=== PATIENT | female | born 2005 | race Asian ===

== ENCOUNTER 2024-08-05 22:09 | Inpatient (IN) | payer OTHER, SELFPAY ==
[2024-08-05 19:03] VITALS: BP 97/52
[2024-08-05 19:50] LABS: Hematocrit 38.6 % (37.0-47.0); Hemoglobin 13.2 g/dL (12.0-16.0); Mean Corp Hgb Conc. 34.2 g/dL (33.0-37.0); Mean Corpuscular Hgb 28.8 pg (27.0-31.0); Mean Corpuscular Volume 84.3 fL (81.0-99.0); Mean Platelet Volume 10.8 fL (7.4-10.4); Platelet Count 162 10^3/uL (130-400); Red Blood Cell Count 4.58 10^6/uL (4.20-5.40); Red Cell Dist. Width 12.3 % (11.5-14.5); White Blood Cell Count 12.7 10^3/uL (4.8-10.8)
[2024-08-05 19:53] LABS: COVID-19 Antigen Negative (Negative)
[2024-08-05 19:57] LABS: HCG, Serum Qualitative Screen Negative
--- NOTE | 2024-08-05 20:05 | ED.GENMED ---
History of Present Illness
General
Chief Complaint: Cold/Flu/URI Symptoms
Source: patient
Exam Limitations: none
Time Seen by Provider: 08/05/24 19:25
History of Present Illness
History of Present Illness:
This is a 19 year old female that comes in with c/o chest pain and SOB. States that she is having trouble breathing and she has sharp chest pain. States that this started on Monday and is getting worse. States that she went to see the PCP today
and she has strep throat. States that she was started on Antibiotic and she has taken one dose. States that she has a fever of 102.0 with chills yesterday. State that she is also Nauseated and occasionally dizzy. Denies any abd pain, vomiting,
diarrhea, headache, urinary burning.
Past History
Past History
ED Past Medical History: Other (Migraines); Negative Asthma, HTN, Hypercholesterolemia or NIDDM
ED Past Surgical History: None
Social History
Tobacco: Smoker
Alcohol: Occasional
Personal: Single
Living: with family
Review of Systems
Review of Systems
All Other Systems: ROS reviewed and negative except as documented in HPI and ROS
Constitutional: Reports fever (Monday) and chills
EENT: Reports sore throat
Respiratory: Reports trouble breathing; Denies cough
Cardiac: Reports chest pain
ABD/GI: Reports nausea; Denies abdominal pain, vomiting or diarrhea
: Reports no symptoms; Denies dysuria, frequency or urgency
Musculoskeletal: Reports no symptoms
Skin: Reports no symptoms
Neurological: Reports dizzy (occasional); Denies headache
Psychiatric: Reports no symptoms
Phy Exam
General Physical Exam
General Presentation: no apparent distress
General age: appears stated age
General Skin: warm and dry
General Habitus: normal
General Mental: alert
General Hydration: appears well hydrated
ENT Exam
ENT Exam: TM's normal, neck supple and other (Pharynx red)
Eye Exam
Eye Exam: EOMI
Cardiovascular Exam
Cardiovascular Exam: no edema, no murmur, normal peripheral pulses and tachycardia
Pulmonary Exam
Pulmonary Exam: lungs clear, no respiratory distress, no rales, chest non tender, no crackles, no rhonchi, no wheezing and no cough
Gastrointestinal Exam
Gastrointestinal Exam: normal bowel sounds, non tender, soft, no organomegaly, no pulsatile mass and non distended
Musculoskeletal Exam
Musculoskeletal Exam: full ROM and no edema
Skin Exam
Skin Exam: normal color, warm/dry, no rash and no petechia
Psychiatric Exam
Psychiatric Exam: normal mood/affect
Course
Orders/Labs/Results
Orders:
Orders
08/05/24 19:05
Electrocardiogram (*1) Urgent
Reason for Study: Tachycardia
EKG- Treatment ONCE
Test Result ONCE
08/05/24 19:09
COVID-19 Antigen Urgent
Source: Nasal Swab
Influenza A+B Rapid Molecular Urgent
LEON Source: Nasal Swab
Specimen Description:
08/05/24 19:11
CMP [Comprehensive Metabolic Panel] Urgent
Complete Blood Count/With Diff Urgent
HCG, Serum Qualitative Screen Urgent
08/05/24 20:04
0.9% Sodium Chloride 1000 ml [Nss] 1,000 ml IV BOLUS
Dexamethasone Sod Phosphate [Decadron] 10 mg IV NOW STA
08/05/24 20:05
Troponin I Urgent
08/05/24 20:07
Ondansetron Injectable [Zofran] 4 mg IV NOW STA
08/05/24 20:12
Pantoprazole [Protonix IV] 40 mg IV NOW STA
08/05/24 20:13
D-Dimer Urgent
08/05/24 20:37
Piperacillin/Tazo 3.375 Gram [Zosyn] 3.375 gram in 50 ml IV NOW
Abnormal Lab Results
08/05/24
19:11
WBC 12.7 H 10^3/uL
(4.8-10.8)
MPV 10.8 H fL
(7.4-10.4)
Sodium 131 L mmol/L
(135-145)
Potassium 3.3 L mmol/L
(3.5-5.1)
Chloride 95 L mmol/L
(98-107)
BUN 18 H mg/dl
(7-17)
Creatinine 1.3 H mg/dL
(0.6-1.0)
Glucose 121 H mg/dl
(70-99)
Total Protein 6.1 L g/dl
(6.3-8.2)
Albumin 3.4 L g/dl
(3.5-5.0)
08/05/24 19:11
08/05/24 19:11
Leukocytosis, HCG negative, Hypokalemia, Slight Dehydration. Hyperglycemia. Total protein slightly low. Albumin slightly low.
Vital Signs
Initial and Last Documented VS:
Initial Vital Signs
Temp Pulse Resp BP Pulse Ox
98.4 F 150 18 97/52 100
08/05/24 19:03 08/05/24 19:03 08/05/24 19:03 08/05/24 19:03 08/05/24 19:03
Last Documented Vital Signs
Temp Pulse Resp BP Pulse Ox
98.4 F 150 18 97/52 100
08/05/24 19:03 08/05/24 19:03 08/05/24 19:03 08/05/24 19:03 08/05/24 19:03
MDM/Problems Addressed
Differential Diagnosis Includes:
PNA, Strep throat Gastritis
MDM/Problems Addressed:
This is a 19 year old female that comes in with c/o chest and SOB. States that this started on Monday and has gotten worse. States that she went to the PCP today and was told that she has Strep throat. States that they told her this doesn't have
anything to do with strep throat.
Will check labs, chest x-ray, give IV fluids, Decadron and Toradol.
Back to see patient. Explained to patient and parents that she would be admitted. Patient has a large left sided Pneumonia and is very Tachycardic. Will start on IV antibiotics. Hospitalist notified.
Chronic conditions affecting care:
NA
Acute Exacerbation and/or Progression of Chronic Illness:
NA
*Radiology
Radiology exam reviewed: radiology read reviewed (Chest done as out patient today-Dense lingular consolidcation and smaller patchy opacities in the right upper lobe, Most compatible with Pneumonia Recommend radiographic follow up to resolution. )
*Pulse Oximetry
Patient hypoxic: no
*EKG
Interpreted by ED Provider?: Yes
Heart Rate: 137
Rate: tachycardiac
Rhythm: sinus
[place]: normal axis
Interval: normal interval
QRS Pattern: normal QRS
Ischemia: no ischemia
*Ammonia Distiller Interpretation
Rate: Ammonia Distiller- N/A
*Critical Care Note
Total Time (30-74mins, 75-104mins- exclusive of procedures): Not Applicable
ED Attending Note
-
Portions of this chart may have been created with voice recognition software.� Occasional wrong word or��sound alike� substitutions may have occurred due to the inherent limitations of voice recognition software.
Discharge Plan
Departure
Patient Disposition: Admit
Date of Disposition: 08/05/24
Time of Disposition: 20:55
Admit to: Med/Surg
Presentation/result/management discussed w/ accepting MD/DO: Hospitalist
Patient with high blood pressure during this ER visit?: No
Condition: Good
Covid-19: Not Applicable
Discharge Problem:
Left upper lobe pneumonia, Tachycardia
Referrals:
Phyllis Avila MD [Family Provider] -
Discharge Date and Time
Print Language: OMANI
[2024-08-05 20:07] LABS: ALT (SGPT) 16 U/L (0-35); AST (SGOT) 26 U/L (14-36); Albumin 3.4 g/dl (3.5-5.0); Alkaline Phosphatase 125 U/L (38-126); Blood Urea Nitrogen 18 mg/dl (7-17); Calcium 8.7 mg/dl (8.4-10.2); Carbon Dioxide 22 mmol/L (22-30); Chloride 95 mmol/L (98-107); Glucose 121 mg/dl (70-99); Potassium 3.3 mmol/L (3.5-5.1); Sodium 131 mmol/L (135-145); Total Bilirubin 0.8 mg/dl (0.2-1.3); Total Protein 6.1 g/dl (6.3-8.2); eGFR > 60.00
--- NOTE | 2024-08-05 21:06 | HPS.HSE ---
Family Physician
-
Family Physician: Phyllis Avila
Chief Complaint
-
cough
fever
History of Present Illness
19 year old female with PMH for depression, anxiety presented to us c/o chest pain and SOB since Monday. she was noted to have cough with dark brown sputum. she complained of JULIO and dizzy. she was having fever of 102at home. she was taking Tylenol
and ibuprofen at home. complained of nausea. denied vomiting or diarrhea. denied dysuria or hematuria. States that she went to see the PCP today and she has strep throat. States that she was started on Antibiotic and she has taken one dose.
Patient received dexamethasone, normal saline, Zofran, Protonix. Zosyn in ER
Admitting for further management for pneumonia.
Medical History
Past Medical History
Past Medical History: Reports Other
Additional Past Medical History:
depression
anxiety
Past Surgical History: Reports None
Social History
Tobacco: Vaping
Alcohol: Occasional
Drug: Other (weeds months ago)
Family History
Family History: Not pertinent
Allergies / Home Medications
Allergies reflects when Allergies were last updated in [employer].
Home Medications with original date entered in [employer]
Allergy/Medication List:
Allergies
Allergy/AdvReac Type Severity Reaction Status Date / Time
No Known Allergies Allergy Verified 08/05/24 18:56
Review of Systems
-
Constitutional: Reports No Symptoms, Fever, Fatigue and Chills
EENT: Reports Sore Throat
Respiratory: Reports Cough and Trouble Breathing
Cardiac: Reports No Symptoms
Abdomen/GI: Reports Nausea
: Reports No Symptoms
Musculoskeletal: Reports No Symptoms
Skin: Reports No Symptoms
Neurological: Reports No Symptoms
Endocrine: Reports No Symptoms
Hematologic/Lymphatic: Reports No Symptoms
Psych: Reports No Symptoms
Physical Exam
Vital Signs
Vital Signs
Temp Pulse Resp BP Pulse Ox
98.4 F 150 18 97/52 100
08/05/24 19:03 08/05/24 19:03 08/05/24 19:03 08/05/24 19:03 08/05/24 19:03
Physical Exam
General: Well Developed, Well Nourished and No Apparent Distress
HEENT: NormoCephalic, Moist mucous membranes and Atraumatic
Respiratory: Clear
Cardiac: S1/S2 and Regular Rhythm; No Murmur or Rub
GI: Soft, Non Tender, Non Distended and Normal Bowel Sounds; No Organomegaly
Rectal: Deferred by Provider
Musculoskeletal: No Clubbing, No Cyanosis and No Edema
Skin: No Rash
Neuro: AO x 3 and Nonfocal/grossly intact
Psych: Calm
Laboratory Results
-
08/05/24 19:11
08/05/24 19:11
Laboratory Results
Total Bilirubin 0.8 mg/dl (0.2-1.3) 08/05/24 19:11
AST 26 U/L (14-36) 08/05/24 19:11
ALT 16 U/L (0-35) 08/05/24 19:11
Alkaline Phosphatase 125 U/L (38-126) 08/05/24 19:11
Data Reviewed
-
Diagnostic Radiology: Report Reviewed by me
Lab Data: Labs Reviewed by me
Impression/Plan
-
# fever, cough likely strep Left-sided pneumonia
# Strep throat
#sepsis as evident by hypotension, wbc, and tachycardia
-WBC 12.7
-COVID influenza AMB-negative
-Chest x-ray with impression of Dense lingular consolidation and smaller patchy opacities in the right upper lobe, most compatible with pneumonia.
-Tylenol prn for fever
-Mucinex prn for cough
-iv ceftriaxone and zithro
# Tachycardia likely from dehydration
-EKG with sinus tachycardia
-fluids continued
# Hyponatremia likely hypovolemic
# Hypokalemia
# Acute kidney injury
-oral kcl
-BMP in am
#depression/anxiety
desinofexine and Seroquel continued
#DVT prophylaxis
-scd
#CODE status
-full code
[2024-08-05 21:09] LABS: % Basophils 0.6 % (0-2); % Eosinophils 0.8 % (0-6); % Immature Granulocytes 20.4 % (0-0.5); % Lymphocytes 2.9 % (20.5-51.1); % Monocytes 6.8 % (1.7-9.3); % Neutrophils 68.5 % (42.2-75.2); Absolute Basophils 0.1 10^3/uL (0-0.2); Absolute Eosinophils 0.1 10^3/uL (0-0.7); Absolute Immature Granulocytes 2.6 10^3/uL (0-0.05); Absolute Lymphocytes 0.4 10^3/uL (1.2-3.4); Absolute Monocytes 0.9 10^3/uL (0.1-0.6); Absolute Neutrophils 8.7 10^3/uL (1.4-6.5); Nucleated Red Blood Cells % 0 %
[2024-08-05] MEDS: DECADRON 10 MG IV (21:12)
[2024-08-05] MEDS: ZOFRAN 4 MG IV (21:13)
[2024-08-05] MEDS: PROTONIX IV 40 MG IV (21:13)
[2024-08-05] MEDS: ZOSYN 50 IV (21:13)
[2024-08-05] MEDS: NSS 1000 IV ×2 (21:14→23:37)
--- NOTE | 2024-08-05 21:44 | W.PN.UPDATE ---
Update Note
Progress Note Update
This note serves as an addendum to the H&P by carton filler BOGDAN Valerie VILLA
HPI
19F current smoker, vapes daily seen at ER
- for Sob , colored sputum, T 102 at home with chills
- POS chills
- sharp chest pain started on Monday and is getting worse.
- saw e PCP today POS strep throat, started on Amoxicillin s/p one dose BLOOD TESTER FOWL
- PCP started on Antibiotic and she has taken one dose
- Nauseated and occasionally dizzy.
- Denies any abd pain, vomiting, diarrhea, headache, urinary burning.
Reviewed VS:
Vital Signs
Temp Pulse Resp BP Pulse Ox
98.4 F 150 18 97/52 100
08/05/24 19:03 08/05/24 19:03 08/05/24 19:03 08/05/24 19:03 08/05/24 19:03
PE
Gen: not toxic looking
HEENT anicteric
Neck: supple
Lungs: symmetric AE
Cor:RRR ST S1 S2
PROJECT CONSTRUCTION MANAGER: AAO3
MS:no edema
Psych:anxious
Abnormal Lab Results
08/05/24
19:11
WBC 12.7 H
MPV 10.8 H
Abs Immat Gran (auto) 2.6 H
Absolute Neuts (auto) 8.7 H
Absolute Lymphs (auto) 0.4 L
Absolute Monos (auto) 0.9 H
Immature Gran % 20.4 H
Lymphocytes % 2.9 L
Sodium 131 L
Potassium 3.3 L
Chloride 95 L
BUN 18 H
Creatinine 1.3 H
Glucose 121 H
Total Protein 6.1 L
Albumin 3.4 L
CXR: Dense lingular consolidation and smaller patchy opacities in the right upper lobe, most compatible with pneumonia
ASSESSMENT & PLAN
CAP @ RUL PNA suspect strep complicated with sepsis
Associated with pleuritic CP
Strep POS tonsillitis
- s/p 1 L NS
- cont NS @ 120/H
- switch to IV CFTX and Azithromycin
- BCx
- Tylenol PRN for mild pain
- Oxycodone PRN fo moderate pain
- cassation of smoking and vaping suggested
GUY tonya to sepsis and PNA
Mild hypovolemic hyponatremia
- IV NS
- f/u Cr in AM
- avoid NSAIDs
Anxiety/depression
- cont Seroquel 150mmg HS and Desvenlafaxine
DVT Px: LMWH
Full code
IP TLM
[2024-08-05 22:41] LABS: D-Dimer 1.84 ug/mlFEU (0.00-0.50)
[2024-08-05 22:47] VITALS: BP 98/51
[2024-08-05 23:00] LABS: Troponin I < 0.012 ng/ml
[2024-08-05 23:03] VITALS: BP 90/58
[2024-08-05 23:06] VITALS: BMI 20.2
[2024-08-05] MEDS: LOVENOX 40 MG SC (23:37)
[2024-08-05] MEDS: MUCINEX 600 MG PO (23:37)
[2024-08-05] MEDS: STERILE WATER FOR INJECTION 10 ML IV (23:43)
[2024-08-05] MEDS: ROCEPHIN 1000 MG IV (23:43)
[2024-08-05] MEDS: ZITHROMAX INFUSION 250 IV (23:43)
[2024-08-06] VITALS (21 sets, daily range): BP systolic 80–111; BP diastolic 46–77; BMI 21.2
[2024-08-06 06:39] LABS: Hematocrit 32.4 % (37.0-47.0); Hemoglobin 11.2 g/dL (12.0-16.0); Mean Corp Hgb Conc. 34.6 g/dL (33.0-37.0); Mean Corpuscular Hgb 29.3 pg (27.0-31.0); Mean Corpuscular Volume 84.8 fL (81.0-99.0); Mean Platelet Volume 10.7 fL (7.4-10.4); Platelet Count 167 10^3/uL (130-400); Red Blood Cell Count 3.82 10^6/uL (4.20-5.40); Red Cell Dist. Width 12.2 % (11.5-14.5); White Blood Cell Count 21.1 10^3/uL (4.8-10.8)
[2024-08-06 07:10] LABS: Blood Urea Nitrogen 16 mg/dl (7-17); Calcium 8.2 mg/dl (8.4-10.2); Carbon Dioxide 21 mmol/L (22-30); Chloride 105 mmol/L (98-107); Estimated Creatinine Clearance 94 ml/min; Glucose 150 mg/dl (70-99); Potassium 3.9 mmol/L (3.5-5.1); Sodium 135 mmol/L (135-145); eGFR > 60.00
[2024-08-06] MEDS: MUCINEX 600 MG PO ×2 (07:24→20:48)
[2024-08-06] MEDS: TYLENOL 650 MG PO (10:52)
--- NOTE | 2024-08-06 12:29 | W.PN.HOSP.TC ---
Addendum entered and electronically signed by Carmen Blankenship MD 08/06/24 13:55:
I personally performed a history and physical exam of the patient and discussed management with the resident. I reviewed the resident's note and agree with the documented findings and plan of care HPI/CC.
A/P:
# Sepsis POA 2/2 Community-acquired pneumonia
CXR: RUL PNA
Cont IV Ceftriaxone, Azithromycin
Check MRSA Screen
Follow up Blood Cx
Tylenol/Motrin PRN
# Prerenal GUY, resolved
Cr 1.3 -> 0.8
# sinus tachycardia
Can start Lopressor PRN for HR > 120, hold for SBP < 100
# Anxiety/Depression
Continue Home Meds
# Vaping history
Smoking Cessation Counseling
Original Note:
Today's Communication/Plan
-
.
Assessment / Plan
Assessment / Plan
1. Community-acquired pneumonia
- CXR: RUL PNA complicated by sepsis POA
- IV Ceftriaxone, Azithromycin
- MRSA Screen:
- IVF NS @ 120
- Follow up Blood Cx
- Associated with Pleuritic CP
- Tylenol/Motrin PRN
2. GUY
- Cr 1.3 on arrival, 0.8 this morning s/p IVF; likely secondary to dehydration
- Okay for Motrin; Continue to Monitor CMP
3. Tachycardia
- Likely secondary to dehydration
- IVF
- EKG: sinus tach
- Lopressor for HR > 120, hold for SBP < 100
4. Hypokalemia (resolved)
- K 3.9 s/p 40mEQ
5. Anxiety/Depression
- Continue Home Meds
6. Vaping
- Estimates equivalent of 3 cigs per day
- Smoking Cessation Counseling
Anticipated Discharge: 24 - 48 hours
Subjective/Interval History
-
Date of Service: August 06, 2024
Patient seen and examined while resting in her bed in the ED. Briefly, patient is a 22-year-old female with a past medical history of depression, anxiety, vaping who presents with 3 days of pleuritic chest pain, shortness of breath, cough productive
of dark sputum, headache, nausea, fever with Tmax of 102 controlled with Tylenol and Motrin. Additionally patient has pain with swallowing, visited her PCP the day before arrival, diagnosed with strep, started on amoxicillin. ED evaluation
revealed WBC 12.7, chest x-ray consistent with right upper lobe pneumonia. Patient was started on IV ceftriaxone/azithromycin, Tylenol as needed, Mucinex, IV fluids.
This morning, patient states that she feels the same. Continues to have odynophagia, feels feverish, has cough, and pleuritic chest pain.
Objective Data
-
Labs:
Laboratory Results
08/06/24
06:30
WBC 21.1 H
Hgb 11.2 L
Hct 32.4 L
Plt Count 167
Sodium 135
Potassium 3.9
Chloride 105
Carbon Dioxide 21 L
BUN 16
Creatinine 0.8
Glucose 150 H
Calcium 8.2 L
Vital Signs:
Vital Signs
Temp Pulse Resp BP Pulse Ox
99.6 F 129 36 99/77 97
08/06/24 12:15 08/06/24 12:17 08/06/24 12:17 08/06/24 12:00 08/06/24 10:58
Review of Systems
-
History Source: Patient
Constitutional: Reports Fever and Fatigue
EENT: Reports Sore Throat
Respiratory: Reports Cough and Pleurisy
Cardiac: Reports No Symptoms
Abdomen/GI: Reports Nausea; Denies Vomiting or Diarrhea
Genitourinary: Reports No Symptoms
Neuro: Reports Headache; Denies Lightheadedness
Physical Exam
-
General: Well Developed, Well Nourished and No Apparent Distress
HEENT: Normocephalic, Atraumatic, Anicteric and Pharyngeal Erythema
Respiratory: Clear to Auscultation and Non Labored Respirations
Cardiac: Regular Rhythm and Tachycardic
GI: Soft and Nontender
Musculoskeletal: No Clubbing, No Cyanosis and No Edema
Neuro: Awake, Alert and Oriented
Psych: Calm
Data Reviewed
-
Diagnostic Radiology: Report Reviewed by me and Discussed with Patient
Labs: Labs Reviewed by me and Discussed with Patient
[2024-08-06] MEDS: MOTRIN 400 MG PO (14:06)
[2024-08-06] MEDS: NSS 1000 IV ×2 (15:35→23:51)
[2024-08-06] MEDS: NSS IV (17:06)
[2024-08-06] MEDS: LOVENOX 40 MG SC (18:43)
--- NOTE | 2024-08-06 19:27 | W.PN.UPDATE ---
Update Note
Progress Note Update
D Dimer elevated 1.84 CT/PE ordered and result shows no pulmonary embolism.
-There is multifocal pneumonia including:
-Extensive alveolar airspace disease in the lingula
-Patchy acinar airspace disease in the lateral aspect of the right upper lobe
-Hazy ground glass airspace disease in the basilar portion of the left lower lobe
[2024-08-06] MEDS: PRISTIQ 100 MG PO (20:48)
[2024-08-06] MEDS: NON-FORMULARY ITEM 150 MG PO (20:48)
[2024-08-06] MEDS: ROCEPHIN 1000 MG IV (23:52)
[2024-08-06] MEDS: STERILE WATER FOR INJECTION 10 ML IV (23:52)
[2024-08-06] MEDS: ZITHROMAX INFUSION 250 IV (23:56)
--- NOTE | 2024-08-07 00:26 | PTCARENOTE ---
Patient received in bed upon change of shift with dx of PNA. Patient D dimer elevated and sent at start of shift for CT scan which came back negative for PE. Patient denies chest pain or SOB. Vitals stable. AAOX3. No signs of distress noted.
Pleasant and cooperative with care. Oriented to unit. Call stevens within reach.
[2024-08-07] MEDS: LOPRESSOR 5 MG IV ×3 (00:57→22:28)
[2024-08-07] MEDS: COMPAZINE 5 MG IV ×2 (01:16→23:08)
[2024-08-07 03:00] VITALS: BP 97/62
[2024-08-07 07:21] VITALS: BP 127/80
[2024-08-07 08:02] LABS: Hematocrit 33.4 % (37.0-47.0); Hemoglobin 11.3 g/dL (12.0-16.0); Mean Corp Hgb Conc. 33.8 g/dL (33.0-37.0); Mean Corpuscular Hgb 28.5 pg (27.0-31.0); Mean Corpuscular Volume 84.3 fL (81.0-99.0); Mean Platelet Volume 10.9 fL (7.4-10.4); Platelet Count 178 10^3/uL (130-400); Red Blood Cell Count 3.96 10^6/uL (4.20-5.40); Red Cell Dist. Width 12.3 % (11.5-14.5); White Blood Cell Count 21.4 10^3/uL (4.8-10.8)
[2024-08-07 08:24] LABS: Blood Urea Nitrogen 11 mg/dl (7-17); Calcium 8.1 mg/dl (8.4-10.2); Carbon Dioxide 25 mmol/L (22-30); Chloride 106 mmol/L (98-107); Estimated Creatinine Clearance 114 ml/min; Glucose 113 mg/dl (70-99); Potassium 3.4 mmol/L (3.5-5.1); Sodium 139 mmol/L (135-145); eGFR > 60.00
[2024-08-07] MEDS: NSS 1000 IV ×3 (08:25→23:15)
[2024-08-07] MEDS: MUCINEX 600 MG PO ×2 (08:25→21:24)
--- NOTE | 2024-08-07 09:41 | W.PN.HOSP.TC ---
Addendum entered and electronically signed by Carmen Blankenship MD 08/07/24 14:56:
I personally performed a history and physical exam of the patient and discussed management with the resident. I reviewed the resident's note and agree with the documented findings and plan of care HPI/CC.
A/P:
# Sepsis POA 2/2 Community-acquired pneumonia 2/2 Streptococcus
CXR: RUL PNA
Urine strep pneumonia antigen positive
Cont IV Ceftriaxone, Azithromycin
Follow MRSA Screen
Tylenol/Motrin PRN
# Prerenal GUY, resolved
Cr 1.3 -> 0.8
# sinus tachycardia
IV Lopressor PRN for HR > 120, hold for SBP < 100
# Anxiety/Depression
Continue Home Meds
# Vaping history
Smoking Cessation Counseling
# Elevated D-dimer, likely due to acute infection
CT PE negative for acute PE
Can check bilateral lower extremity ultrasound for completeness sake
Original Note:
Today's Communication/Plan
-
Continue ABx; Lopressor for HR > 120. Replete potassium.
Assessment / Plan
Assessment / Plan
1. Community-acquired pneumonia
- CXR: CARA PNA complicated by sepsis POA/multifocal pneumonia
- IV Ceftriaxone, Azithromycin
- MRSA Screen: pending
- IVF NS @ 120
- Follow up Blood Cx: no growth after 24 hours
- Sputum Cx: oropharyngeal charisma
- Associated with Pleuritic CP
- D-Dimer 1.84; CTA no PE; Lower Ext b/l US:
- Tylenol/Motrin PRN; pain markedly improved today.
- WBC 21.4, continue to monitor on Abx
2. GUY
- Cr 1.3 on arrival, 0.8 s/p IVF; 0.7 this morning.
- Initially likely secondary to dehydration
- Okay for Motrin; Continue to Monitor CMP
3. Tachycardia
- Likely secondary to dehydration/fever
- IVF
- EKG: sinus tach
- Lopressor for HR > 120, hold for SBP < 100 (used once last night)
- Patient SaO2 98% on 4L; wean O2 as tolerated; goal SaO2 > 92%.
4. Hypokalemia
- K 3.9 s/p 40mEQ in ED
- K 3.4 today; replete
5. Anxiety/Depression
- Continue Home Meds
6. Vaping
- Estimates equivalent of 3 cigs per day
- Smoking Cessation Counseling
Anticipated Discharge: 24 - 48 hours
Subjective/Interval History
-
Date of Service: August 07, 2024
Patient seen and examined after being woken up from sleep, in bed. Patient states that she is feeling much better today, particularly with regards to fatigue, pleuritic chest pain and throat pain. Patient notes she required one dose of Lopressor
last night, and that her pain has been well controlled on Tylenol/Motrin.
Update: patient seen and examined at 1300, per nurse, patient HR has been in 120s and patient was satting 85% on room air. EKG was sinus tachy. Upon visiting the patient, patient denies any acute complaints, does not feel short of breath, in fact
feels less fatigued. Patient currently on 4L by CT and saturating around 98%. Her HR ranges from 103-108 while I am in the room. She tells me that her heart rate usually increases after eating, but then returns back to normal.
Objective Data
-
Labs:
Laboratory Results
08/07/24
07:34
WBC 21.4 H
Hgb 11.3 L
Hct 33.4 L
Plt Count 178
Sodium 139
Potassium 3.4 L
Chloride 106
Carbon Dioxide 25
BUN 11
Creatinine 0.7
Glucose 113 H
Calcium 8.1 L
Vital Signs:
Vital Signs
Temp Pulse Resp BP Pulse Ox
98.7 F 111 20 127/80 96
08/07/24 07:21 08/07/24 07:21 08/07/24 07:21 08/07/24 07:21 08/07/24 07:21
I&O
08/06/24 08/07/24 08/08/24
06:59 06:59 06:59
Intake Total 3190 / 3190
Balance 3190 / 3190
Review of Systems
-
History Source: Patient
Constitutional: Reports No Symptoms
EENT: Reports Sore Throat (markedly improved)
Respiratory: Reports No Symptoms
Cardiac: Reports No Symptoms
Abdomen/GI: Reports No Symptoms
Neuro: Reports No Symptoms
Physical Exam
-
General: Well Developed, Well Nourished and No Apparent Distress
HEENT: Normocephalic, Atraumatic and Other (pharyngeal erythema, exudates not present today)
Respiratory: Clear to Auscultation
Cardiac: Regular Rhythm, S1/S2 and Tachycardic
GI: Soft and Nontender
Musculoskeletal: No Clubbing, No Cyanosis, No Edema and Other (no calf tenderness bilaterally. Homans sign is negative bilaterally. )
Skin: Warm and Dry
Neuro: Awake, Alert and Oriented
Psych: Calm
Data Reviewed
-
CT Scan: Report Reviewed by me
Labs: Labs Reviewed by me and Discussed with Patient
[2024-08-07] MEDS: TYLENOL 650 MG PO ×3 (10:29→21:28)
[2024-08-07] MEDS: KCL 20 MEQ PO (10:52)
[2024-08-07 11:30] VITALS: BP 122/82
--- NOTE | 2024-08-07 11:30 | PTCARENOTE ---
08/07- Patient remains in persistent Sinus Tachycardia with HR between 120s-140s despite Metoprolol PRN. Patient now has POX at 85% on RA, doublechecked on 2 different oximeters. Patient denies CP, SOB or Dizziness. Skin=warm/pink/dry with
+PulsesX4. Regular Apical. 12lead EKG obtained showing Sinus Tachycardia only. 4L O2 applied. POX=93% on 4L. Notified Physician.
[2024-08-07 15:09] VITALS: BP 114/80
[2024-08-07] MEDS: LOVENOX 40 MG SC (15:57)
--- NOTE | 2024-08-07 16:27 | CM ---
it application development manager reviewed patient's chart and met with patient and mother at bedside, patient lives with mother and father in a 2 story home, patient is independent with adk;s and ambulation, no dme, home when stable no needs.
PCP: Phyllis Avila
Pharmacy;[facility] on [facility].
Plan; Home when stable, no needs.
[2024-08-07 19:33] VITALS: BP 145/99
[2024-08-07] MEDS: NON-FORMULARY ITEM 150 MG PO (21:24)
[2024-08-07] MEDS: PRISTIQ 100 MG PO (21:24)
[2024-08-07] MEDS: ROCEPHIN 1000 MG IV (23:07)
[2024-08-07] MEDS: ZITHROMAX INFUSION 250 IV (23:07)
[2024-08-07] MEDS: STERILE WATER FOR INJECTION 10 ML IV (23:08)
[2024-08-07 23:27] VITALS: BP 130/94
[2024-08-08 03:37] VITALS: BP 129/88
[2024-08-08] MEDS: LOPRESSOR 5 MG IV ×2 (06:38→19:47)
[2024-08-08] MEDS: MOTRIN 400 MG PO (06:43)
[2024-08-08] MEDS: MUCINEX 600 MG PO ×2 (07:28→19:46)
[2024-08-08] MEDS: NSS 1000 IV (07:28)
[2024-08-08 07:30] VITALS: BP 124/82
[2024-08-08 08:40] LABS: Hematocrit 32.2 % (37.0-47.0); Hemoglobin 11.2 g/dL (12.0-16.0); Mean Corp Hgb Conc. 34.8 g/dL (33.0-37.0); Mean Corpuscular Volume 83.4 fL (81.0-99.0); Mean Platelet Volume 10.5 fL (7.4-10.4); Platelet Count 156 10^3/uL (130-400); Red Blood Cell Count 3.86 10^6/uL (4.20-5.40); Red Cell Dist. Width 12.3 % (11.5-14.5); White Blood Cell Count 15.2 10^3/uL (4.8-10.8)
[2024-08-08] MEDS: TOPROL XL 12.5 MG PO (09:05)
[2024-08-08 09:11] LABS: Blood Urea Nitrogen 3 mg/dl (7-17); Calcium 7.5 mg/dl (8.4-10.2); Carbon Dioxide 27 mmol/L (22-30); Chloride 104 mmol/L (98-107); Estimated Creatinine Clearance > 125 ml/min; Glucose 95 mg/dl (70-99); Magnesium 1.4 mg/dl (1.6-2.3); Sodium 136 mmol/L (135-145); eGFR > 60.00
--- NOTE | 2024-08-08 09:24 | PTCARENOTE ---
sats only mid 80s on RA. O2 2L applied, rechecked sats went up to low 90s. MD aware. HR goes up to 140s with periods of SVT. patient asymptomatic. 12.5 mg of Metoprolol ordered and given, patient is in for CXR this AM
[2024-08-08] MEDS: KCL 40 MEQ PO (10:06)
--- NOTE | 2024-08-08 10:29 | W.PN.HOSP.TC ---
Addendum entered and electronically signed by Carmen Blankenship MD 08/08/24 12:46:
I personally performed a history and physical exam of the patient and discussed management with the resident. I reviewed the resident's note and agree with the documented findings and plan of care HPI/CC.
A/P:
# Sepsis POA 2/2 Community-acquired pneumonia 2/2 Streptococcus
# Acute hypoxic respiratory insufficiency due to above
Placed on 2L nasal cannula, wean as tolerated, patient not on home O2
CXR noted RUL PNA. Urine strep pneumonia antigen positive
Cont IV Ceftriaxone, Azithromycin
MRSA Screen negative
Tylenol/Motrin PRN
# Prerenal GUY, resolved
Cr 1.3 -> 0.6 today
# sinus tachycardia
IV Lopressor PRN for HR > 120, hold for SBP < 100
Low-dose Toprol 12.5 mg daily added
# Hypokalemia
# Hypomagnesemia
Lytes repleted
# Anxiety/Depression
Continue Home Meds
# Vaping history
Smoking Cessation Counseling
# Elevated D-dimer, likely due to acute infection
CT PE negative for acute PE
Lower extremity ultrasound negative for DVT
Original Note:
Today's Communication/Plan
-
.
Assessment / Plan
Assessment / Plan
1. Community-acquired pneumonia
- CXR: CARA PNA complicated by sepsis POA/multifocal pneumonia
- Rrepeat CXR 06/08: significant progression of PNA in left lung
- IV Ceftriaxone, Azithromycin; increase dose of IV ceftriaxone today to 2g IV q24h.
- MRSA Screen: negative
- Follow up Blood Cx: no growth after 48 hours
- Sputum Cx: oropharyngeal charisma contamination, not viable for cx. Repeat sputum culture today.
- Associated with Pleuritic CP; resolved per patient.
- D-Dimer 1.84; CTA no PE; Lower Ext b/l US: pending.
- Tylenol/Motrin PRN;
- WBC 15.2 (improved from 21.4 yesterday), continue to monitor; consider radiographic lag?
2. GUY
- Cr 1.3 on arrival, 0.8 s/p IVF; 0.6 this morning.
- Initially, likely secondary to dehydration
- Okay for Motrin; Continue to Monitor BMP.
3. Tachycardia
- Likely secondary to dehydration/fever
- EKG: sinus tach
- Lopressor for HR > 120, hold for SBP < 100 (used once last night)
- Add Toprol standing dose today
- Patient SaO2 mid 90s of 2L NC. Wean as angy.
4. Hypokalemia
- K 3.9 s/p 40mEQ in ED
- K 3.0 today; replete 40 meQ in AM, and another 20 mEQ in PM. Potential component of the patients tachycardia.
5. Anxiety/Depression
- Continue Home Meds
6. Vaping
- Estimates equivalent of 3 cigs per day
- Smoking Cessation Counseling
Anticipated Discharge: 24 - 48 hours
Subjective/Interval History
-
Date of Service: August 08, 2024
Patient seen and examined while sitting up in bed, listening to music on her headphones, wearing her street clothes today. Patient states that she is subjectively feeling better. States pain has completely resolved, still has lingering cough. Per
nursing, the patient was found to be hypoxic this morning at SaO2 of mid-80s on R/A, but increased on 2L N/C. Additionally patients HR increases to 120s with Max HR 140 with periods of SVT with activity.
Objective Data
-
Labs:
Laboratory Results
08/08/24
08:22
WBC 15.2 H
Hgb 11.2 L
Hct 32.2 L
Plt Count 156
Sodium 136
Potassium 3.0 L
Chloride 104
Carbon Dioxide 27
BUN 3 L
Creatinine 0.6
Glucose 95
Calcium 7.5 L
Vital Signs:
Vital Signs
Temp Pulse Resp BP Pulse Ox
100.2 F 124 18 124/82 90
08/08/24 07:30 08/08/24 09:05 08/08/24 07:30 08/08/24 07:30 08/08/24 07:30
I&O
08/07/24 08/08/24 08/09/24
06:59 06:59 06:59
Intake Total 3190 / 3190 1560 / 1560
Balance 3190 / 3190 1560 / 1560
Review of Systems
-
Constitutional: Reports No Symptoms
EENT: Reports No Symptoms Reported; Denies Sore Throat
Respiratory: Reports Cough; Denies Trouble Breathing or Pleurisy
Cardiac: Reports No Symptoms
Abdomen/GI: Reports No Symptoms
Musculoskeletal: Reports No Symptoms and Other (no calf tenderness or swelling)
Neuro: Reports No Symptoms
Physical Exam
-
General: Well Developed, Well Nourished, No Apparent Distress and Comfortable
HEENT: Normocephalic, Atraumatic and Moist Mucous Membranes
Respiratory: Clear to Auscultation and Non Labored Respirations
Cardiac: Regular Rhythm, S1/S2 and Tachycardic; Negative Calf Tenderness or Kelli's Sign
GI: Soft and Nontender
Musculoskeletal: No Clubbing, No Cyanosis and No Edema
Skin: Warm and Dry
Neuro: Awake, Alert and Oriented
Psych: Calm
Data Reviewed
-
Labs: Labs Reviewed by me and Discussed with Patient
[2024-08-08 11:03] VITALS: BP 123/84
[2024-08-08] MEDS: ROCEPHIN 2000 MG IV (11:34)
[2024-08-08] MEDS: STERILE WATER FOR INJECTION 20 ML IV (11:34)
[2024-08-08] MEDS: MAGNESIUM SULFATE 100 IV (13:01)
--- NOTE | 2024-08-08 13:02 | CM ---
Home with parents when stable.
Plan; Home when stable.
[2024-08-08] MEDS: KCL 20 MEQ PO (14:41)
[2024-08-08 15:10] VITALS: BP 126/88
[2024-08-08] MEDS: LOVENOX SC (17:04)
[2024-08-08 19:49] VITALS: BP 132/88
[2024-08-08] MEDS: NON-FORMULARY ITEM 150 MG PO (21:30)
[2024-08-08] MEDS: PRISTIQ 100 MG PO (21:30)
[2024-08-08 23:24] VITALS: BP 131/85
[2024-08-08] MEDS: ZITHROMAX INFUSION 250 IV (23:35)
[2024-08-09 03:19] VITALS: BP 110/75
[2024-08-09 07:00] VITALS: BP 125/80
[2024-08-09 08:26] LABS: Hematocrit 32.3 % (37.0-47.0); Mean Corp Hgb Conc. 34.1 g/dL (33.0-37.0); Mean Corpuscular Hgb 28.6 pg (27.0-31.0); Mean Corpuscular Volume 84.1 fL (81.0-99.0); Mean Platelet Volume 10.8 fL (7.4-10.4); Platelet Count 180 10^3/uL (130-400); Red Blood Cell Count 3.84 10^6/uL (4.20-5.40); Red Cell Dist. Width 12.4 % (11.5-14.5); White Blood Cell Count 16.2 10^3/uL (4.8-10.8)
[2024-08-09 09:03] LABS: Blood Urea Nitrogen 5 mg/dl (7-17); Calcium 7.9 mg/dl (8.4-10.2); Carbon Dioxide 28 mmol/L (22-30); Chloride 101 mmol/L (98-107); Estimated Creatinine Clearance > 125 ml/min; Glucose 93 mg/dl (70-99); Potassium 3.6 mmol/L (3.5-5.1); Sodium 133 mmol/L (135-145); eGFR > 60.00
[2024-08-09] MEDS: TOPROL XL 12.5 MG PO (09:10)
[2024-08-09] MEDS: MUCINEX 600 MG PO ×2 (09:10→20:36)
[2024-08-09] MEDS: ROCEPHIN 2000 MG IV (09:28)
[2024-08-09] MEDS: STERILE WATER FOR INJECTION 20 ML IV (09:28)
[2024-08-09 09:52] LABS: Magnesium 1.9 mg/dl (1.6-2.3)
[2024-08-09 11:00] VITALS: BP 128/83
--- NOTE | 2024-08-09 11:34 | CM ---
Patient out of room. CM will continue to follow for discharge planning needs.
Plan; return to patient family; watch for further needs.
--- NOTE | 2024-08-09 13:02 | W.PN.HOSP.TC ---
Addendum entered and electronically signed by Carmen Blankenship MD 08/09/24 14:16:
I personally performed a history and physical exam of the patient and discussed management with the resident. I reviewed the resident's note and agree with the documented findings and plan of care HPI/CC.
A/P:
# Sepsis POA 2/2 Community-acquired pneumonia 2/2 Streptococcus
# Acute hypoxic respiratory insufficiency due to above
Placed on 2L nasal cannula, wean as tolerated, patient not on home O2
CXR noted RUL PNA. Urine strep pneumonia antigen positive
Cont IV Ceftriaxone, Azithromycin
MRSA Screen negative
Tylenol/Motrin PRN
# Prerenal GUY, resolved
Cr 1.3 -> 0.6 today
# sinus tachycardia, improved
IV Lopressor PRN for HR > 120, hold for SBP < 100
Low-dose Toprol 12.5 mg daily added this admission
# Hypokalemia
# Hypomagnesemia
Lytes repleted
# Anxiety/Depression
Continue Home Meds
# Vaping history
Smoking Cessation Counseling
# Elevated D-dimer, likely due to acute infection
CT PE negative for acute PE
Lower extremity ultrasound negative for DVT
Original Note:
Today's Communication/Plan
-
.
Assessment / Plan
Assessment / Plan
1. Community-acquired pneumonia
- CXR: CARA PNA complicated by sepsis POA/multifocal pneumonia
- Repeat CXR 06/08: significant progression of PNA in left lung
- IV Ceftriaxone, Azithromycin; IV Ceftriaxone dose increased yesterday to 2g IV q24h
- MRSA Screen: negative
- Follow up Blood Cx: no growth after 48 hours
- Sputum Cx: oropharyngeal charisma contamination, not viable for cx. Repeat sputum culture ordered yesterday.
- Associated with Pleuritic CP; resolved per patient.
- D-Dimer 1.84; CTA no PE; Lower Ext b/l US: negative for DVT.
- Tylenol/Motrin PRN;
- WBC 16.2, continue to monitor.
2. GUY
- Cr 1.3 on arrival, 0.8 s/p IVF; 0.6 this morning.
- Initially, likely secondary to dehydration
- Okay for Motrin; Continue to Monitor BMP.
3. Tachycardia
- Likely secondary to dehydration/fever
- EKG: sinus tach
- Lopressor for HR > 120, hold for SBP < 100 (used once last night)
- Added Toprol standing dose yesterday
- HR 95-105 today, improved.
- Patient SaO2 mid 90s on 2L NC. Taken off of oxygen today, monitor O2 Sats to maintain SaO2>92.
4. Hypokalemia
- K 3.9 s/p 40mEQ in ED
- S/p 60 mEQ yesterday.
- K 3.6 today.
5. Hypomagnesemia
- Mg 1.2, repleted yesterday, 1.9 this AM.
- Continue to monitor Mg/K as this may be a component of the patient's tachycardia.
5. Anxiety/Depression
- Continue Home Meds
6. Vaping
- Estimates equivalent of 3 cigs per day
- Smoking Cessation Counseling
Anticipated Discharge: Within 24 hours
Subjective/Interval History
-
Date of Service: August 09, 2024
Patient seen and examined while resting comfortably in bed, listening to music on her headphones. The patient states that she is feel much better today. She denies having any shortness of breath, and feels cough and sore throat have improved. Denies
pain or any other acute complaints.
Objective Data
-
Labs:
Laboratory Results
08/09/24
08:01
WBC 16.2 H
Hgb 11.0 L
Hct 32.3 L
Plt Count 180
Sodium 133 L
Potassium 3.6
Chloride 101
Carbon Dioxide 28
BUN 5 L
Creatinine 0.6
Glucose 93
Calcium 7.9 L
Vital Signs:
Vital Signs
Temp Pulse Resp BP Pulse Ox
98.2 F 107 18 128/83 95
08/09/24 11:00 08/09/24 11:00 08/09/24 11:00 08/09/24 11:00 08/09/24 11:00
I&O
08/08/24 08/09/24 08/10/24
06:59 06:59 06:59
Intake Total 1560 / 1560 2730 / 2730
Balance 1560 / 1560 2730 / 2730
Review of Systems
-
History Source: Patient
Constitutional: Reports No Symptoms
EENT: Reports No Symptoms Reported
Respiratory: Reports Cough (improving)
Cardiac: Reports No Symptoms
Abdomen/GI: Reports No Symptoms
Neuro: Reports No Symptoms
Physical Exam
-
General: Well Developed, Well Nourished, No Apparent Distress and Comfortable
HEENT: Normocephalic and Atraumatic
Respiratory: Clear to Auscultation
Cardiac: Regular Rhythm and S1/S2
GI: Soft and Nontender
Musculoskeletal: No Clubbing, No Cyanosis and No Edema
Skin: Warm and Dry
Neuro: Awake and Alert
Psych: Calm
Data Reviewed
-
Labs: Labs Reviewed by me and Discussed with Patient
[2024-08-09 15:00] VITALS: BP 139/95
[2024-08-09] MEDS: LOVENOX SC (17:28)
[2024-08-09 19:38] VITALS: BP 136/87
[2024-08-09] MEDS: NON-FORMULARY ITEM 150 MG PO (21:17)
[2024-08-09] MEDS: PRISTIQ 100 MG PO (21:17)
[2024-08-09 23:15] VITALS: BP 138/86
[2024-08-09] MEDS: ZITHROMAX INFUSION 250 IV (23:49)
[2024-08-10 03:07] VITALS: BP 125/87
[2024-08-10 07:00] VITALS: BP 127/84
[2024-08-10] MEDS: TOPROL XL 12.5 MG PO (08:21)
[2024-08-10] MEDS: MUCINEX 600 MG PO (08:21)
[2024-08-10] MEDS: STERILE WATER FOR INJECTION 20 ML IV (09:40)
[2024-08-10] MEDS: ROCEPHIN 2000 MG IV (09:40)
[2024-08-10 11:00] VITALS: BP 132/86
--- NOTE | 2024-08-10 11:34 | CM ---
Home with parents no needs.
Plan; home with parents.
--- NOTE | 2024-08-10 11:51 | W.PN.HOSP.TC ---
Today's Communication/Plan
-
d/c
Assessment / Plan
Assessment / Plan
pt is a 19 year old female
Strep pneumoniae Community-acquired pneumonia--s/p rocephin/zithromax--change to augmentin at d/c for 10 more days--repeat CXR 1 week after abx--off O2--blood culture neg
GUY --resolved- Initially, likely secondary to dehydration
Tachycardia - Likely secondary to dehydration/fever
Hypokalemia--repleted
Hypomagnesemia --repleted
Anxiety/Depression- Continue Home Meds
Vaping- Estimates equivalent of 3 cigs per day- Smoking Cessation Counseling
code status--FULL CODE
OK for d/c
Anticipated Discharge: Today
Subjective/Interval History
-
Date of Service: August 10, 2024
pt ready for d/c
Objective Data
-
Vital Signs:
max temp for 24 hours
08/10/24
07:00
Temp 99.1 F
Vital Signs
Temp Pulse Resp BP Pulse Ox
98.6 F 91 18 132/86 95
08/10/24 11:00 08/10/24 11:00 08/10/24 11:00 08/10/24 11:00 08/10/24 11:00
I&O
08/09/24 08/10/24 08/11/24
06:59 06:59 06:59
Intake Total 2730 / 2730 2170 / 2170 960 / 960
Balance 2730 / 2730 2170 / 2170 960 / 960
Review of Systems
-
All other systems: Reviewed and negative
Physical Exam
-
General: Well Developed, Well Nourished and No Apparent Distress
HEENT: Normocephalic and Atraumatic; Negative Oxygen
Respiratory: Rhonchi (at bases bilaterally)
Cardiac: Regular Rhythm and S1/S2; Negative Murmur
GI: Soft, Nontender, Nondistended and Normal Bowel Sounds
Musculoskeletal: No Clubbing, No Cyanosis and No Edema
Neuro: Awake and Alert
Psych: Calm
--- NOTE | 2024-08-10 16:36 | W.DCSUMMARY ---
Discharge Summary
Discharge Data
Date of Admission: 08/05/24
Date of Discharge: 08/10/24
-
Pending Results: No
Hospital Course
Primary care physician : Phyllis Avila
Principal Discharge diagnosis : Streptococcus pneumoniae community-acquired pneumonia
Chronic Discharge diagnosis : Anxiety/depression, vaping
Hospital Course : Patient is a 19-year-old female with a past medical history significant for depression who had chest pain and shortness of breath since the Monday prior to admission. She had cough with dark brown sputum. She complained of
headache and dizziness, with a fever of 102 at home. She was taking Tylenol and ibuprofen. She did see her primary care physician and was noted to have strep throat. She was started on an antibiotic and has taken 1 dose. Workup in the emergency
room found her to have pneumonia and patient was admitted.
Problem #1: Streptococcus pneumonia community-acquired pneumonia. Patient had a chest x-ray which did show bibasilar pneumonia. She was started on Rocephin and Zithromax. She should be changed to Augmentin at discharge for another 10 days. She
has been weaned off oxygen. After completion of her antibiotic she should have a repeat chest x-ray in 1 week as well as repeat CBC. White count on admission was 12.7 which peaked at 21.4 and has been decreasing since then. She also had
complicating factors including acute kidney injury which resolved with IV fluids, tachycardia which was likely secondary to her fever and dehydration, hypokalemia/hypomagnesemia both of which were repleted.
Problem #2: All other medical issues. These include anxiety/depression and vaping. She was counseled to stop vaping. Medications were continued as able for other medical issues.
Patient is stable for discharge home at this time. If there are any questions regarding this dictation or hospital stay, please not hesitate to call. Our office number is [phone].
Important imaging findings :
CHEST X-RAY IMPRESSION: Significant progression of pneumonia in the left lung.
Discharge Plan
-
Patient Disposition: Home (Routine Discharge)
Discharge Diagnosis/Procedures: Streptococcus pneumoniae community-acquired pneumonia, acute kidney injury�resolved, tachycardia�resolved, hypokalemia/hypomagnesemia�repleted, anxiety/depression
Condition: Good
Diet: As tolerated and Regular
Activity: As tolerated
Driving Restrictions: As prior to admission
Bathing Restrictions: None
Activity Restrictions/Additional Instructions:
He will need a chest x-ray 1 week after you finish the antibiotics to ensure clearance of your pneumonia.
At that time, you will need blood work to see if your white blood cell count is also back in the normal range
Referrals:
Phyllis Avila MD [Family Provider] - in less than 1 week
Prescriptions:
New
amoxicillin-pot clavulanate 875-125 mg tablet
1 tab PO Q12H 10 Days Qty: 20 0RF
Continued
acetaminophen [Tylenol Extra Strength] 500 mg Tablet
1,000 mg PO Q6HPRN PRN (Reason: mild pain)
norgestimate-ethinyl estradiol [Ahi-Zy-Bsgwhu] 0.18/0.215/0.25 mg-25 mcg Tablet
1 tab PO HS
quetiapine 150 mg Tablet Extended Release 24 Hr
150 mg PO HS
desvenlafaxine 100 mg Tablet Extended Release 24 Hr
100 mg PO DAILY
Discontinued
amoxicillin 875 mg Tablet
875 mg PO BID
ibuprofen 200 mg Tablet
400 mg PO Q6HPRN PRN (Reason: mild pain)
Discharge Orders:
Discharge Patient (As Directed); Ordered 08/10/24
Ordered By: Griselda Che
Discharge Date and Time
Discharge Date/Time: 08/10/24 12:43
Print Language: AMERICAN
== END 2024-08-10 12:43 | disposition home or self-care (01) | DRG 871 ==
LOC: 4 WEST ACU 22:09
PROVIDERS: Clinical Nurse Specialist Family Health; Emergency Medicine; Registered Nurse; ADMITTING PHYSICIAN Internal Medicine; ATTENDING PHYSICIAN Internal Medicine; EMERGENCY PHYSICIAN Emergency Medicine; FAMILY PHYSICIAN Pediatrics
DX: A41.9 Sepsis, unspecified organism (principal); J13 Pneumonia due to Streptococcus pneumoniae; E87.1 Hypo-osmolality and hyponatremia; N17.9 Acute kidney failure, unspecified; E86.0 Dehydration; E86.1 Hypovolemia; E87.6 Hypokalemia; F32.A Depression, unspecified; F41.9 Anxiety disorder, unspecified; J02.0 Streptococcal pharyngitis; F17.290 Nicotine dependence, other tobacco product, uncomplicated; R00.0 Tachycardia, unspecified; E83.42 Hypomagnesemia; R06.89 Other abnormalities of breathing; R09.02 Hypoxemia; Z20.822 Contact with and (suspected) exposure to COVID-19
CPT/HCPCS: 71046; 71275; 80048; 80053; 83605; 83735; 84484; 84703; 85025; 85027; 85379; 87040; 87070; 87205; 87449; 87502; 87811; 87899; 93005; 93970; 96365; 96375; 99285; 99406; Q9967

== ENCOUNTER → 2024-09-04 16:20 | Outpatient (REF) | payer OTHER, SELFPAY | LOC: RAD 16:20 | PROVIDERS: ATTENDING PHYSICIAN Internal Medicine; FAMILY PHYSICIAN Family Medicine | DX: J18.9 Pneumonia, unspecified organism (principal) | CPT/HCPCS: 71046 ==